=== PATIENT | male | born 2000 | race Caucasian/White ===

== ENCOUNTER 2024-03-18 11:44 | Day surgery (SDC) | payer BC ==
[~2024-03-18] VITALS: Ht 180.3 cm; Wt 62.4 kg
[~2024-03-18 11:44] MED LIST: AMPH1TAB2 PO
[2024-03-18] MEDS ORDERED: fentaNYL 100 MCG/2 ML INJECTION As Ordered ONE (14:07)
[2024-03-18] MEDS ORDERED: MIDAZOLAM INJ 2MG/2ML VIAL As Ordered ONE (14:07)
[2024-03-18] MEDS ORDERED: ACETAMINOPHEN 1000MG 100ML IV BAG As Ordered ONE (14:08)
[2024-03-18] MEDS ORDERED: SUGAMMADEX SODIUM 500 MG/5 ML VIAL (BRIDION) As Ordered ONE (14:08)
[2024-03-18] MEDS ORDERED: propofoL 200 MG/20 ML VIAL As Ordered ONE (14:08)
[2024-03-18] MEDS ORDERED: ONDANSETRON 4MG 2ML VIAL As Ordered ONE (14:09)
[2024-03-18] MEDS ORDERED: ROCURONIUM BROMIDE 50MG/5ML VIAL As Ordered ONE (14:09)
[2024-03-18] MEDS ORDERED: LIDOCAINE 2% 100MG/5ML SDV (FOR ANES.) As Ordered ONE (14:09)
[2024-03-18] MEDS ORDERED: ONDANSETRON 4MG 2ML VIAL IV PRN (16:05)
[2024-03-18] MEDS ORDERED: MORPHINE 2 MG/ML 1ML VIAL IV PRN (16:05)
[2024-03-18] MEDS ORDERED: fentaNYL 100 MCG/2 ML INJECTION IV PRN (16:05)
[2024-03-18] MEDS: oxyCODONE 5MG TAB PO PRN (16:36)
[2024-03-18 17:05] VITALS: BP 138/80; TEMP 98.6; O2SAT 99
== END 2024-03-18 17:28 | disposition home or self-care (01) ==
LOC: M SDC 11:44
PROVIDERS: ATTEND Otolaryngology
DX: J35.01 Chronic tonsillitis (principal); F17.210 Nicotine dependence, cigarettes, uncomplicated; F90.9 Attention-deficit hyperactivity disorder, unspecified type; Z79.899 Other long term (current) drug therapy
CPT/HCPCS: 42826; 88302; J0131; J1100; J2250; J2405; J3010

== ENCOUNTER 2025-05-20 17:27 | Emergency (ER) | payer BC, MEDICAID, SELFPAY ==
[~2025-05-20] VITALS: Ht 180.3 cm; Wt 66.5 kg
[2025-05-20 21:25] VITALS: BP 134/63; TEMP 96.8; O2SAT 97
== END 2025-05-20 21:39 | disposition home or self-care (01) ==
LOC: M ED 17:27
DX: S82.832A Other fracture of upper and lower end of left fibula, initial encounter for closed fracture (principal); S82.892A Other fracture of left lower leg, initial encounter for closed fracture; W01.198A Fall on same level from slipping, tripping and stumbling with subsequent striking against other object, initial encounter; Y92.410 Unspecified street and highway as the place of occurrence of the external cause; Y93.02 Activity, running; Y99.9 Unspecified external cause status; J30.89 Other allergic rhinitis

== ENCOUNTER → 2025-05-28 | Outpatient (CLI) | payer SELFPAY | LOC: M SOG 06:49 | PROVIDERS: ATTEND Orthopaedic Surgery | DX: M25.572 Pain in left ankle and joints of left foot (principal) ==

== ENCOUNTER → 2025-06-11 | Outpatient (CLI) | payer SELFPAY | LOC: M SOG 07:17 | PROVIDERS: ATTEND Orthopaedic Surgery | DX: M79.662 Pain in left lower leg (principal) ==

== ENCOUNTER → 2025-06-17 | Outpatient (CLI) | payer SELFPAY | LOC: M SOG 06:45 | PROVIDERS: ATTEND Orthopaedic Surgery | DX: M79.662 Pain in left lower leg (principal) ==